=== PATIENT | female | born 1940 | race Caucasian/White ===

== ENCOUNTER 2021-02-22 08:56 | Emergency (ER) | payer MEDICARE, BC ==
[~2021-02-22] VITALS: Ht 167.6 cm; Wt 83.9 kg
--- NOTE | ~2021-02-22 | EMS ---
[place] [address] EMS Patient Care Report Name: BERTA MCKEON Room: [facility]#: [id number] Admission: 02/22/21 Attend Phys: Discharge: Date of : 36 Report #: [id number] THIS REPORT FOR: //name// Report Transmitted: 02/22/2021 11:11 EMS Care Summary [facility] Incident [id number] @ 02/22/2021 07:52 Incident Location [address] [place] [address] 202 Patient BERTA MCKEON Female, 80 Years 1940 Patient Address [address] [place] [address] Patient History Cardiac Arrythmia,Dementia,Hypertension (HTN),Pacemaker/AICD,Urinary Tract Infection (UTI),Chronic Pain,Sleep Apnea,Novel Coronavirus (COVID-19), Patient Allergies Latex allergy,Intravenous Dye,Dye allergy, Patient Medications Losartan, Tramadol, Furosemide, Atenolol, Dexamethasone, Detrol, Proair, Ropinirole, Simvastatin, Warfarin, Zetia, Loratadine, Advair, Aspirin, Propranolol, Tylenol, Omeprazole, Chief Complaint She's more confused than usual Disposition Transported No Lights/[place] Dispatch Reason [place] [address] EMS Patient Care Report Name: BERTA MCKEON Room: [facility]#: [id number] Admission: 02/22/21 Attend Phys: Discharge: Date of : 36 Report #: [id number] Dispatch: Med 1 response requested to [facility] for a female who has fallen twice and is experiencing hallucinations. Med 1 copied the call and began our response to the scene. We arrived at the ambulance bay without incident. Chief complaint: In room 202 we found our patient (Berta) sitting up right in her recliner. Patient was noted to be fully naked. She was alert to person only with a GCS of 14. Her nurse advised she had fallen and is confused. History of present illness: Berta was recently admitted to [facility] February 17, 2021. Berta has a diagnosis of dementia but has since progressed in the few days she's been at [facility]. Berta has a recent diagnosis of brain cancer that is in an unknown stage but metasis from breast cancer. Berta is not currently receiving any treatment for her cancer. She did trip and fall from standing twice on January. Staff denied that she lost consciousness or hit her head. Berta did stub her toe in which we noted bruising. We were not able to assess the patient on the stroke scale or MEND exam as she's non cooperative. Ishan family requested she be transported to [facility] to visit with her oncologist to assess the progression of her cancer. We were not able to get much information Berta as she was confused. Assessment: Alert to person with a GCS of 14. Airway open and patent. Patient able to speak in full sentences without distress noted. Lung sounds clear with non labored breathing. Skin noted to be pink, warm and dry. Pulse present and regular at the radial side. Bruising to the pink toe on her foot. Patient also had a ulcer on her buttock. Secondary assessment as noted in tab Reason for transport: Family requested the patient be sent to the ER for evaluation due to increased confusion. Treatment: ALS assessment, vitals, 12 lead ECG showing paced rhythm, blood sugar check, MEND exam attempt, transport. Summary: We attempted to assess patient on the MEND exam but she would not cooperate. She was dressed in a hospital type gown and assisted to then stand up from her chair. She was assisted to turn and sit on the cot where she was covered with a blanket and secured with all seat belts. She was taken to the ambulance and placed inside. Central dispatch advised us that [facility] ER is closed to all ambulance traffic. We had central dispatch contact [facility] to see where they'd like us to transport to. We were advised to go to [facility] instead. Vitals were monitored. She was placed on the calf skinner where a 12 lead ECG was completed. Patient would not allow us to do IV access. We began our transport to the ER while patient rested in what appeared to be a comfortable manor. Radio report called in to the ER 20 [place] [address] EMS Patient Care Report Name: BERTA MCKEON [id number] Admission: 02/22/21 Attend Phys: Discharge: Date of : 36 Report #: [id number] to the ER patient was taken inside and to ER 4 where she was moved to the ER bed while report was given. Signatures were obtained by the ER as patient was not able to understand signing. Med 1 transferred care and cleared to return to service. Initial Vitals @08:14P: 102,R: 20,BP: 120/64,Pain: 0/10,GCS: 14,SpO2: 97,Revised Trauma: 12, @07:59P: 100,R: 18,BP: 90/54,Pain: 0/10,GCS: 14,SpO2: 95,Revised Trauma: 12, @08:09P: 100,R: 18,BP: 100/60,Pain: 0/10,GCS: 14,Glucose: 296,SpO2: 96,Revised Trauma: 12, @08:28P: 111,R: 18,BP: 110/64,Pain: 0/10,GCS: 14,SpO2: 94,Revised Trauma: 12, @08:50P: 110,R: 18,BP: 112/60,Pain: 0/10,GCS: 14,SpO2: 99,Revised Trauma: 12, @08:24P: 103,R: 18,BP: 110/66,Pain: 0/10,GCS: 14,SpO2: 95,Revised Trauma: 12, @08:45P: 94,R: 18,BP: 128/71,Pain: 0/10,GCS: 15,SpO2: 94,Revised Trauma: 12, Assessments @08:00MENTAL:Confused,Person Oriented,Hallucinations,SKIN:HEENT:LUNG SOUNDS:ABDOMEN:PELVIS//GI:EXTREMITIES:PULSE:NEURO:@08:37MENTAL:Person Oriented,Hallucinations,Confused,SKIN:HEENT:LUNG SOUNDS:ABDOMEN:PELVIS//GI:EXTREMITIES:PULSE:NEURO: Impression Confusion/Delirium Procedures @PTASurgical Mask on PatientResponse: Unchanged@08:00ALS AssessmentResponse: UnchangedSucceeded@08:2812-Lead ECGResponse: UnchangedSucceeded@08:1412-Lead ECGResponse: UnchangedSucceeded@09:24 cc () @08:01Spinal Motion Restriction Timeline INSPECTOR RECEIVING,Surgical Mask on Patient,Response: Unchanged 07:52,Call Received 07:52,Dispatched 07:53,En Route 07:56,On Scene 07:58,At Patient 07:59,BP: 90/54 M,PULSE: 100,RR: 18 R,SPO2: 95 Ox,ETCO2: ,BG: ,PAIN: 0,GCS: 14, 08:00,ALS Assessment,Response: UnchangedSucceeded, 08:01,Spinal Motion Restriction, 08:09,BP: 100/60 M,PULSE: 100,RR: 18 R,SPO2: 96 Ox,ETCO2: ,B,PAIN: 0,GCS: 14, 08:13,Depart Scene 08:14,12-Lead ECG,Response: UnchangedSucceeded, 08:14,BP: 120/64 M,PULSE: 102,RR: 20 R,SPO2: 97 Ox,ETCO2: ,BG: ,PAIN: 0,GCS: 14, 08:24,BP: 110/66 M,PULSE: 103,RR: 18 R,SPO2: 95 Ox,ETCO2: ,BG: ,PAIN: 0,GCS: [place] [address] EMS Patient Care Report Name: BERTA MCKEON Room: [facility]#: [id number] Admission: 02/22/21 Attend Phys: Discharge: Date of : 36 Report #: [id number] 14, 08:28,12-Lead ECG,Response: UnchangedSucceeded, 08:28,BP: 110/64 M,PULSE: 111,RR: 18 R,SPO2: 94 Ox,ETCO2: ,BG: ,PAIN: 0,GCS: 14, 08:45,BP: 128/71 M,PULSE: 94,RR: 18 R,SPO2: 94 Ox,ETCO2: ,BG: ,PAIN: 0,GCS: 15, 08:48,At Destination 08:50,BP: 112/60 M,PULSE: 110,RR: 18 R,SPO2: 99 Ox,ETCO2: ,BG: ,PAIN: 0,GCS: 14, 09:24, cc Site: , 09:50,Call Closed Disclaimer v1.1 Copyright 2020 [employer] This EMS Care Summary contains data elements from the applicable legal record (which may be displayed differently). It is designed to provide pertinent information for the following purposes: continuity of care, clinical quality, and state data reporting. The complete legal record is available to ED staff and administrators of the receiving hospital in [facility]'s Patient Tracker. All data is provided "as is."
[2021-02-22 09:17] LABS: HEMATOCRIT 43.9 % (37.0-47.0); HEMOGLOBIN 14.1 gm/dL (12.0-15.0); MCH 26.9 pg (26.0-34.0); MCHC 32.2 g/dL (28.0-37.0); MCV 83.5 fL (80.0-100.0); MPV 10.9 fl. (7.2-11.1); NUCLEATED RBCS 0 /100WBC; PLATELET COUNT* 99 thou/uL (150-400); RBC 5.25 mil/uL (4.20-5.00); RDW-CV 16.9 % (10.5-14.5); WBC 15.8 thou/uL (4.0-11.0)
[2021-02-22] MEDS ORDERED: PROAIR HFA8.5 GM INH (09:26)
[2021-02-22] MEDS ORDERED: LORATIDINE 10 M10 M1 PO (09:26)
[2021-02-22] MEDS ORDERED: COZAAR100 MG PO (09:26)
[2021-02-22] MEDS ORDERED: ACETAMINOPHEN325 M1 PO (09:26)
[2021-02-22] MEDS ORDERED: CHILDREN'S ASPI81 MG PO (09:26)
[2021-02-22] MEDS ORDERED: OMEPRAZOLE40 MG PO (09:27)
[2021-02-22] MEDS ORDERED: OMEGA DHA92 MG PO (09:27)
[2021-02-22] MEDS ORDERED: PROPAFENONE 22225 M1 PO (09:27)
[2021-02-22] MEDS ORDERED: SIMVASTATIN40 MG PO (09:27)
[2021-02-22] MEDS ORDERED: ROPINIROLE HCL0.5 MG PO (09:27)
[2021-02-22] MEDS ORDERED: OCUVITE LUTEIN1 EAC2 PO (09:28)
[2021-02-22] MEDS ORDERED: DETROL LA4 MG PO (09:28)
[2021-02-22] MEDS ORDERED: ATENOLOL 50MG T50 MG PO (09:28)
[2021-02-22] MEDS ORDERED: TRAMADOL 50 MG50 MG PO (09:28)
[2021-02-22] MEDS ORDERED: VITAMIN D325 MC3 PO (09:29)
[2021-02-22] MEDS ORDERED: FUROSEMIDE 40 M40 MG PO (09:29)
[2021-02-22] MEDS ORDERED: VITAMIN B-121000 MC2 SUBLING (09:29)
[2021-02-22] MEDS ORDERED: DEXAMETHASONE 44 M1 PO (09:29)
[2021-02-22] MEDS ORDERED: ADVAIR 100-501 EACH INH (09:29)
[2021-02-22] MEDS ORDERED: ZETIA10 MG PO (09:29)
[2021-02-22 09:30] LABS: CALCIUM 10.3 mg/dL (8.5-10.1); CREATININE 1.8 mg/dL (0.6-1.3); POTASSIUM 5.4 mmol/L (3.5-5.1)
[2021-02-22] MEDS ORDERED: ONE DAILY COMP1 EAC1 PO (09:30)
[2021-02-22] MEDS ORDERED: K-DUR 20 MEQ T20 MEQ PO (09:30)
[2021-02-22 09:31] LABS: INR 1.7; PROTIME 17.7 Seconds (9.20-11.50)
[2021-02-22] MEDS ORDERED: WARFARIN SODIUM4 MG PO (09:31)
[2021-02-22] MEDS ORDERED: CALCIUM + D3 E1 EACH PO (09:31)
[2021-02-22 09:43] LABS: URINE BILIRUBIN NEGATIVE (Negative); URINE BLOOD NEGATIVE (Negative); URINE CLARITY CLEAR; URINE COLOR YELLOW; URINE GLUCOSE-RANDOM NEGATIVE (Negative); URINE KETONES NEGATIVE (Negative); URINE LEUKOCYTES-REFLEX TRACE (Negative); URINE NITRITE-REFLEX NEGATIVE (Negative); URINE PROTEIN NEGATIVE (Negative)
[2021-02-22 09:43] LABS: ABSOLUTE LYMPHOCYTES 0.6 thou/uL (0.8-5.3); ABSOLUTE MONOCYTES 1.3 thou/uL (0.0-1.2); ABSOLUTE NEUTROPHILS 13.9 thou/uL (1.6-8.1); ANISOCYTOSIS 1+; PLATELET ESTIMATE DECREASED; POIKILOCYTOSIS 1+
[2021-02-22 09:45] LABS: ALBUMIN 3.3 g/dL (3.4-5.0); CK-MB MASS 2.1 ng/mL (<0.5-3.6); TOTAL BILIRUBIN 2.2 mg/dL (<0.1-1.0); TOTAL PROTEIN 6.7 g/dL (6.4-8.2)
[2021-02-22 09:50] LABS: CASTS None Seen /LPF (None Seen); CRYSTALS None Seen /LPF (None Seen); MUCUS 0-3 Light strn/LPF (None Seen); SQUAMOUS 4-10 Moderate /LPF (0-3); URINE RBC 0-2 Rare /HPF (0-2); URINE WBC-REFLEX 0-5 Rare /HPF (0-5)
[2021-02-22 12:10] VITALS: BP 112/65
--- NOTE | 2021-02-22 16:28 | EKG ---
[place] [address] ELECTROCARDIOGRAM REPORT Name: BERTA MCKEON Room: [facility]#: [id number] Admission: 02/22/21 Attend Phys: Discharge: 02/22/21 Date of : 36 Date of Service: 02/22/21916 Report #: [id number] THIS REPORT FOR: //name// [facility] ED Test Date: 2021-02-22 Test Time: 09:17:33 Pat Name: BERTA MCKEON Department: Room: Gender: F Business Office Specialist: : 1940 Requested By: Paulo Riley Order Number: [id number] MD: Marlon Esquivel Measurements Intervals Redig Rate: 78 P: 87 NC: 207 QRS: -9 QRSD: 84 T: 236 QT: 410 QTc: 468 Interpretive Statements Sinus rhythm with first degree AV block Repol abnrm, severe global ischemia (LM/MVD) No previous ECG available for comparison Electronically Signed On 02-22-2021 16:28:27 CDT by Marlon Esquivel [email or web address] <ELECTRONICALLY SIGNED> By: Marlon Esquivel MD, [facility] 02/22/21 1628 0917 0917 Marlon Esquivel MD, [facility] /EPI
== END 2021-02-22 12:15 | disposition short-term general hospital (02) ==
LOC: M.ERS 08:56
PROVIDERS: Family Medicine
DX: I61.8 Other nontraumatic intracerebral hemorrhage (principal); S92.811A Other fracture of right foot, initial encounter for closed fracture; R41.82 Altered mental status, unspecified; I63.9 Cerebral infarction, unspecified; Z20.822 Contact with and (suspected) exposure to COVID-19; Z91.041 Radiographic dye allergy status; Z88.2 Allergy status to sulfonamides; Z88.8 Allergy status to other drugs, medicaments and biological substances; X58.XXXA Exposure to other specified factors, initial encounter; Y93.89 Activity, other specified; Y92.89 Other specified places as the place of occurrence of the external cause; Y99.8 Other external cause status